=== PATIENT | male | born 1950 | race Caucasian/White ===

== ENCOUNTER → 2021-08-28 15:20 | Outpatient (BNVA) | payer MEDICARE, BC, SELFPAY | PROVIDERS: Family Provider Nurse Practitioner Family; PCP Nurse Practitioner; Visit Provider Nurse Practitioner | DX: R19.4 Change in bowel habit (principal) | CPT/HCPCS: 80053; 85025 ==

== ENCOUNTER 2021-10-02 14:02 | Outpatient (CLI) | payer MEDICARE, BC, SELFPAY ==
--- NOTE | 2021-10-02 15:30 | CTR_ITS ---
PROCEDURE INFORMATION: Exam: CT Abdomen And Pelvis With Contrast Exam date and time: 10/02/2021 3:30 PM Age: 71 years old Clinical indication: Other: Change in bowel habit; Patient HX: Blood in stool, epigastric pain; Additional info: R19.4 - change in bowel habit TECHNIQUE: Imaging protocol: Computed tomography of the abdomen and pelvis with contrast. Radiation optimization: All CT scans at this facility use at least one of these dose optimization techniques: automated exposure control; mA and/or kV adjustment per patient size (includes targeted exams where dose is matched to clinical indication); or iterative reconstruction. Contrast material: OMNI 300; Contrast volume: 95 ml; Contrast route: INTRAVENOUS (IV); COMPARISON: US Renal Kidney Structu* [id number] 07/23/2018 11:39 AM RADIATION DOSE METRICS: Total DLP (mGy-cm): 1075.55 FINDINGS: Liver: Normal. No mass. Gallbladder and bile ducts: Normal. No calcified stones. No ductal dilation. Pancreas: Normal. No ductal dilation. Spleen: Normal. No splenomegaly. Adrenal glands: Normal. No mass. Kidneys and ureters: Normal. No hydronephrosis. Stomach and bowel: Distal descending and proximal sigmoid colon mild wall thickening may be due to nondistention, a mild colitis may also be a consideration depending on the clinical scenario. Appendix: No evidence of appendicitis. Intraperitoneal space: Unremarkable. No free air. No significant fluid collection. Vasculature: Unremarkable. No abdominal aortic aneurysm. Lymph nodes: Unremarkable. No enlarged lymph nodes. Urinary bladder: Unremarkable as visualized. Reproductive: Prostate gland enlarged. Bones/joints: Unremarkable. No acute fracture. Soft tissues: Small right inguinal hernia containing omentum without bowel. CT/CT abdomen pelvis w con* [id number] IMPRESSION: 1. Distal descending and proximal sigmoid colon mild wall thickening may be due to nondistention, a mild colitis may also be a consideration depending on the clinical scenario. 2. Small right inguinal hernia containing omentum without bowel. 3. Prostate gland enlarged.
[2021-10-02] MEDS: iohexol 300 mg/mL 100 mL Btl IV (16:21)
[2021-10-02] MEDS: iohexol 300 mg/mL 50 mL Btl PO (16:22)
== END 2021-10-02 14:03 | disposition home or self-care (01) ==
LOC: RAD 14:02
PROVIDERS: PCP Nurse Practitioner; Visit Provider Nurse Practitioner
DX: K92.1 Melena (principal); R10.13 Epigastric pain; K40.90 Unilateral inguinal hernia, without obstruction or gangrene, not specified as recurrent; N40.0 Benign prostatic hyperplasia without lower urinary tract symptoms
CPT/HCPCS: 74177

== ENCOUNTER → 2021-10-08 13:15 | Outpatient (BNVA) | payer MEDICARE, BC, SELFPAY | PROVIDERS: PCP Nurse Practitioner; Visit Provider Surgery | DX: Z20.822 Contact with and (suspected) exposure to COVID-19 (principal) | CPT/HCPCS: 87635 ==

== ENCOUNTER 2021-10-12 08:59 | Day surgery (SDC) | payer MEDICARE, BC, SELFPAY ==
[2021-10-10 10:54] VITALS: BMI 24.3
--- NOTE | 2021-10-12 09:32 | ANES.PREANE2 ---
Pre-Anesthetic Assessment Height/Weight: Height 1.7 m Weight 70.307 kg Preop Diagnosis: diagnostic Operation Date: 10/12/21 10:30 Proposed Procedures p EGD [id number]/55985/k92.1/r19.4/r10.13(Not Applicable) - Pavan Castellanos MD s Colonoscopy(Not Applicable) - Pavan Castellanos MD Familial anesthetic complications: None Was Beta Gregory taken within 24 hours: N/A Was Clonidine taken within 24 hours: N/A Social No alcohol and No tobacco Exam alert, oriented x 3, clear to auscultation bilaterally and regular rate & rhythm Airway Submandibular: within normal limits Cervical ROM: within normal limits Mallampati: Class II Dentition: chipped History/ROS No significant history except as noted Anesthetic Plan ASA status: 1 Anesthesia: MAC Medications/Allergies Home Medications Medication Instructions Recorded Confirmed Last Taken Type No Known Home Medications 03/09/20 10/10/21 Unknown History Allergies Allergy/AdvReac Type Severity Reaction Status Date / Time No Known Allergies Allergy Verified 09/11/21 12:43 [facility] Anesthesia Medical History Arthralgia Surgical History (Updated 09/11/21 @ 13:19 by Pavan Castellanos MD) H/O arthroscopic knee surgery Left History of colonoscopy History of knee surgery Left knee replacement History of tonsillectomy Family History Father FH: CVA (cerebrovascular accident) Mother CHF (congestive heart failure) Social History Smoking and tobacco status: never smoked Alcohol intake: current Alcohol intake frequency: few times a week Desire information about alcohol rehabilitation?: No Counseling given: No Desire information about substance/drug rehabilitation?: No Counseling given: No Adopted: No Caregiver/support person: No Lives independently: Yes Household members: spouse Housing: House Marital status: service: No Current occupational status: other Current occupation: [employer] Pets and animals: Yes History of recent travel: No Current gender identity: Male Special jayda needs: No Data Anesthesia Cardiac Studies: No Data to Display
[2021-10-12 09:48] VITALS: BP 143/94; PULSE 70; RESP 16; TEMP 36.3; O2SAT 98
[2021-10-12] MEDS: sodium chloride 0.9% 1,000 ML 30 ML IV (09:59)
--- NOTE | 2021-10-12 10:51 | W.PM.OPSFHP ---
Same Day Surgery H&P Indication for Procedure/HPI DATE OF PROCEDURE: October 12, 2021 CHIEF COMPLAINT/INDICATIONFOR SURGICAL PROCEDURE: egd/colon for epigastric pain and hematochezia PREOP DIAGNOSIS: diagnostic PLANNED PROCEDURE: Operation Date: 10/12/21 10:30 Proposed Procedures p EGD [id number]/k92.1/r19.4/r10.13(Not Applicable) - Pavan Castellanos MD s Colonoscopy(Not Applicable) - Pavan Castellanos MD Medications/Allergies* Home Medications Medication Instructions Recorded Confirmed Type No Known Home Medications 03/09/20 10/12/21 History Allergies/Adverse Reactions Allergy/AdvReac Type Severity Reaction Status Date / Time No Known Allergies Allergy Verified 10/12/21 09:48 Current Medications: Generic Name Dose Route Start Last Admin Trade Name Freq PRN Reason Stop Dose Admin Sodium Chloride 1,000 mls @ 30 mls/hr 10/12/21 09:15 10/12/21 09:59 Sodium Chloride 0.9% IV 10/13/21 09:14 30 mls/hr .Q24H OLEKSANDR Administration Pertinent History/Comorbid Conditions* Medical History (Updated 08/17/20 @ 10:28 by Brandt Lynch MD) Arthralgia Surgical History (Updated 09/11/21 @ 13:19 by Pavan Castellanos MD) H/O arthroscopic knee surgery Left History of colonoscopy History of knee surgery Left knee replacement History of tonsillectomy Family History (Updated 03/09/20 @ 16:43 by RUY Avila-Beth) FH: CVA (cerebrovascular accident) Father CHF (congestive heart failure) Mother Social History Smoking and tobacco status: never smoked Alcohol intake: current Alcohol intake frequency: few times a week Desire information about alcohol rehabilitation?: No Counseling given: No Desire information about substance/drug rehabilitation?: No Counseling given: No Adopted: No Caregiver/support person: No Lives independently: Yes Household members: spouse Housing: House Marital status: service: No Current occupational status: other Current occupation: [employer] Pets and animals: Yes History of recent travel: No Current gender identity: Male Special jayda needs: No Pertinent Exam Findings alert, oriented x 3 and regular rate & rhythm Recommendations Surgery/Procedure today Coding Level of Care Code Acute [employer] [facility] for [facility]
[2021-10-12 11:49] VITALS: BP 118/73; PULSE 58; RESP 18; O2SAT 96
--- NOTE | 2021-10-12 11:51 | ANE.PACU2 ---
Inpatient post-anesthesia follow up: Airway intact: Yes Vital signs: Temperature 97.3 F Pulse Rate 58 Respiratory Rate 18 Blood Pressure 118/73 Pulse Oximetry 96 Oxygen Delivery Me thod Nasal Cannula Oxygen Flow Rate 3 Fraction of Inspir ed Oxygen Hydration adequate: Yes Nausea and vomiting: No Pain level: 1 Mental status: Baseline
[2021-10-12 11:57] VITALS: BP 117/75; PULSE 67; RESP 18; O2SAT 94
== END 2021-10-12 12:15 | disposition home or self-care (01) ==
PROVIDERS: PCP Nurse Practitioner; Visit Provider Surgery
PROC: 0DJ08ZZ Inspection of Upper Intestinal Tract, Via Natural or Artificial Opening Endoscopic (ICD-10-PCS; CPT 43235; principal; 2021-10-12 10:30)
PROC: 0DJD8ZZ Inspection of Lower Intestinal Tract, Via Natural or Artificial Opening Endoscopic (ICD-10-PCS; CPT 45378; 2021-10-12 10:30)
DX: K92.1 Melena (principal); R10.13 Epigastric pain; D12.5 Benign neoplasm of sigmoid colon; K57.30 Diverticulosis of large intestine without perforation or abscess without bleeding; K64.8 Other hemorrhoids
CPT/HCPCS: 45381; 45385; 88305; J2704; J7030

== ENCOUNTER → 2021-10-22 09:15 | Outpatient (BNVA) | payer MEDICARE, BC, SELFPAY | PROVIDERS: PCP Nurse Practitioner; Visit Provider Surgery | DX: K63.5 Polyp of colon (principal); A04.8 Other specified bacterial intestinal infections ==

== ENCOUNTER → 2021-10-23 13:34 | Outpatient (BNVA) | payer MEDICARE, BC, SELFPAY | PROVIDERS: PCP Nurse Practitioner; Visit Provider Surgery | DX: K63.5 Polyp of colon (principal); A04.8 Other specified bacterial intestinal infections | CPT/HCPCS: 99212 ==

== ENCOUNTER → 2022-01-10 15:42 | Outpatient (BNVA) | payer MEDICARE, BC, SELFPAY | PROVIDERS: PCP Nurse Practitioner; Visit Provider Nurse Practitioner | DX: K57.32 Diverticulitis of large intestine without perforation or abscess without bleeding (principal) | CPT/HCPCS: 85025 ==

== ENCOUNTER → 2022-10-22 08:40 | Outpatient (BNVA) | payer MEDICARE, BC, SELFPAY | PROVIDERS: PCP Nurse Practitioner; Visit Provider Surgery | DX: Z98.890 Other specified postprocedural states (principal); Z86.010 Personal history of colon polyps | CPT/HCPCS: 99213 ==